=== PATIENT | female | born 1995 | race Asian ===

== ENCOUNTER 2016-07-20 21:02 | Emergency (ER) | payer OTHER ==
[2016-07-20 21:28] VITALS: BP 114/67
[2016-07-20] MEDS ORDERED: BSS OPTH.SOL* BTL ONE (21:37)
[2016-07-20] MEDS ORDERED: Fluorescein Sodium TOPICAL* 1 MG TEST ONE (21:37)
[2016-07-20] MEDS ORDERED: Tetracaine 0.5% OPTH.SOL 15ML* BTL ONE (21:37)
--- NOTE | 2016-07-20 21:41 | UC ---
Eye Complaint HPI - HPI Summary HPI Summary: R eye irritation and itchiness starting 3 days ago. Wears contacts but hasn't slept in them. No drainage, no photophobia. - History of Current Complaint Stated Complaint: EYE ISSUE Time Seen by Provider: 07/20/16 21:24 Hx Obtained From: Patient Hx Last Menstrual Period: 07/04/16 ?: No Onset/Duration: Gradual Onset, Lasting Days Timing: Constant Severity Initially: Mild Severity Currently: Mild Location of Injury: Conjunctiva Character: Dull Aggravating Factor(s): Nothing Alleviating Factor(s): Nothing Associated Signs And Symptoms: Positive: Negative - Allergies/Home Medications Allergies/Adverse Reactions: Allergies Allergy/AdvReac Type Severity Reaction Status Date / Time No Known Allergies Allergy Verified 07/20/16 21:15 Home Medications: Home Medications NK [No Home Medications Reported] 07/20/16 [History Confirmed 07/20/16] PMH/Surg Hx/FS Hx/Imm Hx Previously Healthy: Yes - Surgical History Surgical History: None - Family History Known Family History: Negative: Blood Disorder - Social History Occupation: Student Lives: Alone Alcohol Use: Occasionally Substance Use Type: None Smoking Status (MU): Never Smoked Tobacco Review of Systems Constitutional: Negative Skin: Negative Eyes: Eye Redness ENT: Negative Respiratory: Negative Cardiovascular: Negative Gastrointestinal: Negative Genitourinary: Negative Motor: Negative Neurovascular: Negative Musculoskeletal: Negative Neurological: Negative Psychological: Negative All Other Systems Reviewed And Are Negative: Yes Physical Exam Triage Information Reviewed: Yes Appearance: Well-Appearing, No Pain Distress, Well-Nourished Vital Signs: Initial Vital Signs Temp 99 F 07/20/16 21:17 Pulse 68 07/20/16 21:17 Resp 18 07/20/16 21:17 BP 114/67 07/20/16 21:17 Pulse Ox 100 07/20/16 21:17 Vital Signs Reviewed: Yes Eye Exam: Other - PERR Eyes: Positive: Conjunctiva Inflamed - R eye, very mild, Other: - R eye wide area of fluorescein uptake on lower central cornea, approx 3mm x 4mm ENT Exam: Normal ENT: Positive: Normal ENT inspection, Hearing grossly normal, Pharynx normal, TMs normal Dental Exam: Normal Neck exam: Normal Neck: Positive: Supple, Nontender, No Lymphadenopathy Respiratory Exam: Normal Respiratory: Positive: Chest non-tender, Lungs clear, Normal breath sounds, No respiratory distress, No accessory muscle use Cardiovascular Exam: Normal Cardiovascular: Positive: RRR, No Murmur Musculoskeletal Exam: Normal Neurological Exam: Normal Neurological: Positive: Alert Psychological Exam: Normal Skin Exam: Normal Eye Complaint Course/Dx - Differential Dx/Diagnosis Provider Diagnoses: corneal abrasion Discharge - Discharge Plan Condition: Stable Disposition: HOME Patient Education Materials: Corneal Abrasion (ED) Referrals: Jose Amato MD [Medical Doctor] - 2 Days
[2016-07-20] MEDS ORDERED: Erythromycin OPTH OINT* APPLIC OINT RIGHT EYE ONE (22:01)
== END 2016-07-20 22:15 | disposition home or self-care (01) ==
LOC: UCEAST 21:02
DX: S05.01XA Injury of conjunctiva and corneal abrasion without foreign body, right eye, initial encounter (principal); X58.XXXA Exposure to other specified factors, initial encounter; Y93.9 Activity, unspecified; Y92.9 Unspecified place or not applicable
CPT/HCPCS: 99202; A9270-GY; G0463

== ENCOUNTER 2017-07-18 11:58 | Emergency (ER) | payer OTHER ==
[2017-07-18 12:22] VITALS: BP 99/60
--- NOTE | 2017-07-18 13:24 | UC ---
Skin Complaint HPI - History of Current Complaint Chief Complaint: UCSkin Time Seen by Provider: 07/18/17 13:04 Stated Complaint: CAT SCRATCH Hx Obtained From: Patient Hx Last Menstrual Period: current Onset/Duration: Sudden Onset, Lasting Hours Skin Exposure Onset/Duration: Hours Ago Timing: Constant Pain Intensity: 0 Location: Discrete - right wrist Aggravating Factor(s): Nothing Alleviating Factor(s): Nothing Associated Signs & Symptoms: Positive: Negative - Allergy/Home Medications Allergies/Adverse Reactions: Allergies Allergy/AdvReac Type Severity Reaction Status Date / Time No Known Allergies Allergy Verified 07/18/17 12:23 Review of Systems Constitutional: Negative Skin: Other - three scratches on left wrist Eyes: Negative ENT: Negative Respiratory: Negative Cardiovascular: Negative Gastrointestinal: Negative Genitourinary: Negative Motor: Negative Neurovascular: Negative Musculoskeletal: Negative Neurological: Negative Psychological: Negative Is Patient Immunocompromised?: No All Other Systems Reviewed And Are Negative: Yes PMH/Surg Hx/FS Hx/Imm Hx Previously Healthy: Yes - Surgical History Surgical History: None - Family History Known Family History: Positive: None - Denies PFH of CAD,DM,HTN. Negative: Blood Disorder - Social History Occupation: Student Lives: Alone Alcohol Use: None Substance Use Type: None Smoking Status (MU): Never Smoked Tobacco Have You Smoked in the Last Year: No Physical Exam Triage Information Reviewed: Yes Appearance: Well-Appearing Vital Signs: Initial Vital Signs Temp 98.6 F 07/18/17 12:16 Pulse 72 07/18/17 12:16 Resp 16 07/18/17 12:16 BP 99/60 07/18/17 12:16 Pulse Ox 99 07/18/17 12:16 Vital Signs Reviewed: Yes Eye Exam: Normal ENT Exam: Normal Neck exam: Normal Respiratory Exam: Normal Cardiovascular Exam: Normal Skin Exam: Other - left distal wrist volar aspect one small superficial scratch , dorsal aspect with two linear superficial scratches. no surrounding erythema, or induration or flucuance. Course/Dx - Course Course Of Treatment: Patient presents with an unremarkable past medical history. She was scratched by her own cat who if fully immunized. The scratches are superficial, and i recommend topical bacitracin ointment twice daily. If any other symtpoms develop such as increased redness, swelling, pain, warmth or drainge she would need to be re-evaluated. She verbalized understanding. - Differential Diagnoses - Skin Complaint Differential Diagnoses: Other - cat scratch - Diagnoses Provider Diagnoses: cat scratch Discharge - Sign-Out/Discharge Documenting (check all that apply): Discharge - Discharge Plan Condition: Stable Disposition: HOME Prescriptions: Bacitracin OINT* 1 dose TOPICAL BID #1 tube Patient Education Materials: Abrasion (ED) Referrals: No Primary Care Phys,NOPCP [Primary Care Provider] - Additional Instructions: Patient was scratched by her own cat, the cat has been fully immunized. She is going to contact the vet to verify the immunization that usually include rabies. - Billing Disposition and Condition Condition: STABLE Disposition: HOME
== END 2017-07-18 13:19 | disposition home or self-care (01) ==
LOC: UCEAST 11:58
DX: S60.811A Abrasion of right wrist, initial encounter (principal); W55.03XA Scratched by cat, initial encounter; Y93.9 Activity, unspecified; Y92.9 Unspecified place or not applicable
CPT/HCPCS: 99212; G0463